=== PATIENT | female | born 1975 | race Caucasian/White ===

== ENCOUNTER 2019-12-30 03:22 | Emergency (ER) | payer OTHER ==
[~2019-12-30] VITALS: Ht 160 cm; Wt 82.8 kg
[2019-12-30 03:26] VITALS: BP 129/51
--- NOTE | 2019-12-30 03:43 | NUR ---
URINE WALKED TO LAB
[2019-12-30] MEDS ORDERED: KETOROLAC 30 MG/1 ML ONE (03:51)
[2019-12-30] MEDS ORDERED: ONDANSETRON ODT 4 MG ONE (03:51)
[2019-12-30 03:54] LABS: MICROSCOPIC AUTO
--- NOTE | 2019-12-30 03:56 | NUR ---
task rn: pt medicated per mar, nad, resting in [facility], denies additional needs at this time.
[2019-12-30] MEDS ORDERED: KETOROLAC 30 MG/1 ML IM ONE (04:00)
[2019-12-30] MEDS ORDERED: ONDANSETRON ODT 4 MG PO ONE (04:00)
[2019-12-30 04:05] LABS: BASOPHILS # (AUTO) 0.04 x10^3/uL (0-0.1); BASOPHILS % (AUTO) 0 % (0-1); EOSINOPHILS # (AUTO) 0.02 x10^3/uL (0-0.4); EOSINOPHILS % (AUTO) 0 % (1-7); LYMPHOCYTES # (AUTO) 1.14 x10^3/uL (1-3.4); LYMPHOCYTES % (AUTO) 10 % (22-44); MD NO; MEAN CORPUSCULAR HEMOGLOBIN 30.4 pg (27.0-34.8); MEAN CORPUSCULAR HGB CONC 33.4 g/dL (32.4-35.8); MEAN CORPUSCULAR VOLUME 91.1 fL (80-100); MONOCYTES # (AUTO) 0.11 x10^3/uL (0.2-0.8); MONOCYTES % (AUTO) 1 % (2-9); NEUTROPHILS # (AUTO) 10.62 x10^3/uL (1.8-6.8); NEUTROPHILS % (AUTO) 89 % (42-75); PLATELET COUNT 275 x10^3/uL (130-400); RED BLOOD COUNT 4.53 x10^6/uL (3.82-5.3); RED CELL DISTRIBUTION WIDTH 12.7 % (9.6-15.2)
[2019-12-30 04:07] LABS: ALANINE AMINOTRANSFERASE 83 U/L (12-78); ALBUMIN 3.8 g/dL (3.4-5.0); ANION GAP 7 mmol/L (5-15); CALCIUM 8.6 mg/dL (8.5-10.1); CHLORIDE 107 mmol/L (98-107); CREATININE 0.84 mg/dL (0.55-1.02)
[2019-12-30 04:12] LABS: ALKALINE PHOSPHATASE 111 U/L (45-117); BILIRUBIN,TOTAL 0.7 mg/dL (0.2-1.0); TOTAL PROTEIN 7.3 g/dL (6.4-8.2)
[2019-12-30] MEDS ORDERED: CEFDINIR 300 MG CAPSULE ONE (04:48)
[2019-12-30] MEDS ORDERED: CEFDINIR 300 MG CAPSULE PO ONE (05:00)
== END 2019-12-30 05:10 | disposition home or self-care (01) ==
LOC: ED 04:20
DX: N10 Acute pyelonephritis (principal)
CPT/HCPCS: 36415; 80053; 81001; 83690; 84703; 85025; 87077; 87086; 96372; 99283; J1885; Q0162; 87186